=== PATIENT | male | born 1955 ===

== ENCOUNTER 2020-10-19 20:38 | Inpatient (IN) ==
[2020-10-19] MEDS ORDERED: ALBUTEROL 2.5 MG/3 ML NEB RESP TX PRN ×2 (21:25)
[2020-10-19] MEDS ORDERED: ONDANSETRON 4 MG/2 ML VIAL IV PRN (21:25)
[2020-10-19] MEDS ORDERED: ENOXAPARIN 40 MG/0.4 ML SYRINGE SUBCUT SCH (21:30)
[2020-10-19] MEDS: LACTATED RINGERS 1,000 ML IV SCH (21:50)
[2020-10-19] MEDS ORDERED: NOREPINEPHRINE 8 MG in SODIUM CHLORIDE 0.9% 242 ML IV PRN (22:51)
[2020-10-19 23:35] LABS: ABG Base Excess 0.3 MMOL/L (-2.5-2.5); ABG HCO3 24.7 MMOL/L (20-26); ABG Oxygen Saturation 98.8 % (95-100); ABG PCO2 48.8 MM HG (35-48); ABG PH 7.344 (7.35-7.45); ABG TCO2 23.9 MMOL/L (23-27)
[2020-10-19] MEDS: methylPREDNISolone SOD SUC 40 MG/1 ML VIAL IV SCH (23:45)
[2020-10-19] MEDS: FAMOTIDINE 20 MG/2 ML VIAL IV SCH (23:46)
[2020-10-20] MEDS: ENOXAPARIN 80 MG/0.8 ML SYRINGE SUBCUT SCH ×3 (00:03→22:49)
[2020-10-20] MEDS: CEFEPIME 1,000 MG in SODIUM CHLORIDE 0.9% 100 ML IV SCH ×4 (01:02→22:49)
[2020-10-20] MEDS: ALBUTEROL/IPRATROPIUM 3 ML NEB RESP TX SCH ×4 (01:12→19:07)
[2020-10-20 04:50] LABS: ABG Base Excess -3.3 MMOL/L (-2.5-2.5); ABG HCO3 21.9 MMOL/L (20-26); ABG Oxygen Saturation 98.8 % (95-100); ABG PCO2 39.7 MM HG (35-48); ABG PH 7.359 (7.35-7.45); ABG PO2 203.9 MM HG (80-95); ABG TCO2 23.1 MMOL/L (23-27)
[2020-10-20 04:54] LABS: Basophils % 0.1 % (0.0-0.8); Hematocrit 35.7 VOL% (42.0-52.0); Hemoglobin 11.3 GM/DL (14.0-18.0); Immature Granulocytes % 0.4 %; Immature Granulocytes Absolute 0.08 #; Lymphocytes # 0.3 10*3/uL (1.4-4.0); Lymphocytes % 1.8 % (21.2-54.2); Mean Corpuscular HGB Conc 31.7 GM/DL (32-36); Mean Corpuscular Volume 86.7 FL (87-102); Mean Platelet Volume 10.8 FL (9.6-12.0); Monocytes % 2.1 % (1.7-12.7); Neutrophils % 95.6 % (38.7-73.9); Platelet Count 317 T/CUMM (130-400); Red Blood Count 4.12 MC/CUMM (3.8-5.5); Red Cell Distribution Width 13.9 % (9.3-17.3)
[2020-10-20 05:16] LABS: Band Neutrophils 5 % (0-10); Hypochromasia 1+; Lymphocytes 1 % (20-55); Segmented Neutrophils 94 % (50-85); Total Cells Counted 100
[2020-10-20 05:17] LABS: Microcytosis 1+
[2020-10-20 05:19] LABS: Alanine Aminotransferase 106 U/L (16-61); Albumin 1.9 G/DL (3.4-5.0); Alkaline Phosphatase 151 U/L (45-117); Aspartate Amino Transferase 135 U/L (0-37); Bilirubin,Total < 0.39 MG/DL (0.2-1.0); Blood Urea Nitrogen 26 MG/DL (7-18); Calcium 7.5 MG/DL (8.5-10.1); Carbon Dioxide 23 MMOL/L (21-32); Estimated Glom Filtration Rate 50 ML/MIN; Glucose 427 MG/DL (74-106); Osmolality,Calculated 303.3 MOS/KG (273-304); Potassium 3.2 MMOL/L (3.5-5.1); Sodium 141 MMOL/L (136-145); Total Protein 6.3 G/DL (6.4-8.2)
[2020-10-20] MEDS ORDERED: MAGNESIUM SULF RIDER 2 GM in PREMIX 1 EACH IV PRN (05:31)
[2020-10-20] MEDS ORDERED: MAGNESIUM SULF RIDER 4 GM in PREMIX 1 EACH IV PRN (05:31)
[2020-10-20] MEDS ORDERED: INSULIN LISPRO 100 UNIT/ML SUBCUT SCH (06:00)
[2020-10-20] MEDS ORDERED: GLUCAGON 1 MG VIAL IM PRN (07:12)
[2020-10-20] MEDS ORDERED: DEXTROSE 50% 25 GM/50 ML VIAL IV PRN (07:12)
[2020-10-20] MEDS ORDERED: POTASSIUM CHLORIDE 20 MEQ/15 ML UDCUP PER TUBE PRN (07:14)
[2020-10-20] MEDS: POTASSIUM CHLORIDE RIDER 20 MEQ in PREMIX 1 EACH IV PRN ×2 (07:35→09:36)
[2020-10-20] MEDS: LACTATED RINGERS 1,000 ML IV SCH ×3 (07:42→20:49)
[2020-10-20 07:53] LABS: VLDL CHOLESTEROL 15.6 MG/DL
[2020-10-20] MEDS: ASPIRIN CHEW 81 MG TABLET PO SCH (08:14)
[2020-10-20] MEDS: INSULIN LISPRO 100 UNIT/ML SUBCUT SCH ×5 (08:15→23:57)
[2020-10-20] MEDS: FAMOTIDINE 20 MG/2 ML VIAL IV SCH ×2 (08:32→20:48)
[2020-10-20 08:37] LABS: Ferritin 223.2 ng/ml (26-388)
[2020-10-20 09:32] LABS: Troponin I 2.85 NG/ML (0.00-0.045)
[2020-10-20] MEDS: methylPREDNISolone SOD SUC 40 MG/1 ML VIAL IV SCH ×2 (10:37→22:48)
[2020-10-20 11:08] LABS: CKMB % 5.7 %; Troponin I 2.69 NG/ML (0.00-0.045)
[2020-10-20 13:29] LABS: CKMB % 4.9 %; Troponin I 2.75 NG/ML (0.00-0.045)
[2020-10-20] MEDS ORDERED: SODIUM CHLORIDE 0.9% 500 ML IV ONE (14:00)
[2020-10-20] MEDS: MORPHINE 4 MG/1 ML VIAL IV PRN ×2 (19:13→23:35)
[2020-10-20] MEDS ORDERED: INSULIN GLARGINE 100 UNIT/ML SUBCUT SCH (21:00)
[2020-10-21] MEDS: ALBUTEROL/IPRATROPIUM 3 ML NEB RESP TX SCH ×4 (01:50→17:55)
[2020-10-21 03:27] LABS: ABG Base Excess 1.1 MMOL/L (-2.5-2.5); ABG HCO3 25.4 MMOL/L (20-26); ABG Oxygen Saturation 99.3 % (95-100); ABG PH 7.415 (7.35-7.45); ABG TCO2 23.5 MMOL/L (23-27)
[2020-10-21 03:31] LABS: Basophils % 0.1 % (0.0-0.8); Eosinophils # 0.3 10*3/uL (0.0-0.87); Eosinophils % 1.3 % (0.00-10.9); Hematocrit 29.3 VOL% (42.0-52.0); Hemoglobin 9.2 GM/DL (14.0-18.0); Immature Granulocytes % 0.9 %; Lymphocytes # 0.4 10*3/uL (1.4-4.0); Mean Corpuscular HGB Conc 31.4 GM/DL (32-36); Mean Corpuscular Volume 87.2 FL (87-102); Mean Platelet Volume 10.7 FL (9.6-12.0); Monocytes % 3.3 % (1.7-12.7); Neutrophils % 92.4 % (38.7-73.9); Platelet Count 291 T/CUMM (130-400); Red Blood Count 3.36 MC/CUMM (3.8-5.5); Red Cell Distribution Width 14.2 % (9.3-17.3); White Blood Count 22.1 T/CUMM (4-12)
[2020-10-21 03:47] LABS: Calcium 7.8 MG/DL (8.5-10.1); Osmolality,Calculated 297.8 MOS/KG (273-304); Potassium 3.3 MMOL/L (3.5-5.1)
[2020-10-21] MEDS ORDERED: POTASSIUM CHLORIDE RIDER 200 ML IV ONE (03:54)
[2020-10-21] MEDS: POTASSIUM CHLORIDE RIDER 20 MEQ in PREMIX 1 EACH IV PRN ×2 (03:57→09:09)
[2020-10-21 04:02] LABS: Band Neutrophils 3 % (0-10); Eosinophils 2 % (0-10); Segmented Neutrophils 95 % (50-85); Total Cells Counted 100
[2020-10-21 04:03] LABS: Hypochromasia Slight; Platelet Estimate Normal
[2020-10-21] MEDS: INSULIN LISPRO 100 UNIT/ML SUBCUT SCH ×5 (04:26→20:36)
[2020-10-21] MEDS: MORPHINE 4 MG/1 ML VIAL IV PRN ×2 (04:26→19:33)
[2020-10-21] MEDS: CEFEPIME 1,000 MG in SODIUM CHLORIDE 0.9% 100 ML IV SCH ×2 (08:09→14:39)
[2020-10-21] MEDS: ROSUVASTATIN 10 MG TABLET PO SCH (08:09)
[2020-10-21] MEDS: ASPIRIN CHEW 81 MG TABLET PO SCH (08:09)
[2020-10-21] MEDS: FAMOTIDINE 20 MG/2 ML VIAL IV SCH ×2 (08:30→20:37)
[2020-10-21] MEDS ORDERED: SKIN HEALING OINT (AQUAPHOR) 50 GM TUBE TOP PRN (09:00)
[2020-10-21] MEDS: LACTATED RINGERS 1,000 ML IV SCH (10:03)
[2020-10-21] MEDS: amLODIPine 10 MG TABLET PO SCH (10:31)
[2020-10-21] MEDS: methylPREDNISolone SOD SUC 40 MG/1 ML VIAL IV SCH ×2 (10:32→23:02)
[2020-10-21] MEDS: DEXTROSE 5% NACL 0.45% 1,000 ML IV SCH (12:00)
[2020-10-21] MEDS: ENOXAPARIN 80 MG/0.8 ML SYRINGE SUBCUT SCH ×2 (12:05→23:58)
[2020-10-21] MEDS: METOPROLOL TARTRATE 50 MG TABLET PO SCH (20:31)
[2020-10-21] MEDS ORDERED: INSULIN GLARGINE 100 UNIT/ML SUBCUT SCH (21:00)
[2020-10-22] MEDS: MORPHINE 4 MG/1 ML VIAL IV PRN ×2 (00:18→06:29)
[2020-10-22] MEDS: CEFEPIME 1,000 MG in SODIUM CHLORIDE 0.9% 100 ML IV SCH ×4 (00:36→23:59)
[2020-10-22] MEDS: ALBUTEROL/IPRATROPIUM 3 ML NEB RESP TX SCH ×4 (01:11→19:41)
[2020-10-22] MEDS: INSULIN LISPRO 100 UNIT/ML SUBCUT SCH ×8 (01:25→23:59)
[2020-10-22] MEDS: DEXTROSE 5% NACL 0.45% 1,000 ML IV SCH (02:25)
[2020-10-22 03:47] LABS: ABG Base Excess -0.3 MMOL/L (-2.5-2.5); ABG HCO3 24.2 MMOL/L (20-26); ABG Oxygen Saturation 96.4 % (95-100); ABG PCO2 38.9 MM HG (35-48); ABG PH 7.403 (7.35-7.45); ABG PO2 84.6 MM HG (80-95); ABG TCO2 22.2 MMOL/L (23-27)
[2020-10-22 03:56] LABS: Basophils % 0.1 % (0.0-0.8); Eosinophils # 0.3 10*3/uL (0.0-0.87); Eosinophils % 1.4 % (0.00-10.9); Hematocrit 29.7 VOL% (42.0-52.0); Hemoglobin 9.1 GM/DL (14.0-18.0); Immature Granulocytes % 2.2 %; Immature Granulocytes Absolute 0.42 #; Lymphocytes # 0.3 10*3/uL (1.4-4.0); Lymphocytes % 1.7 % (21.2-54.2); Mean Corpuscular HGB Conc 30.6 GM/DL (32-36); Mean Corpuscular Volume 88.7 FL (87-102); Mean Platelet Volume 10.9 FL (9.6-12.0); Monocytes % 3.4 % (1.7-12.7); Neutrophils % 91.2 % (38.7-73.9); Platelet Count 299 T/CUMM (130-400); Red Blood Count 3.35 MC/CUMM (3.8-5.5); Red Cell Distribution Width 14.5 % (9.3-17.3); White Blood Count 19.5 T/CUMM (4-12)
[2020-10-22 04:08] LABS: Calcium 7.7 MG/DL (8.5-10.1); Osmolality,Calculated 296.1 MOS/KG (273-304); Potassium 3.9 MMOL/L (3.5-5.1)
[2020-10-22 04:41] LABS: Band Neutrophils 5 % (0-10); Hypochromasia 1+; Lymphocytes 5 % (20-55); Microcytosis Slight; Segmented Neutrophils 86 % (50-85); Total Cells Counted 100
[2020-10-22] MEDS: ASPIRIN CHEW 81 MG TABLET PO SCH (08:47)
[2020-10-22] MEDS: FAMOTIDINE 20 MG/2 ML VIAL IV SCH ×2 (08:47→20:33)
[2020-10-22] MEDS: amLODIPine 10 MG TABLET PO SCH (08:48)
[2020-10-22] MEDS: METOPROLOL TARTRATE 50 MG TABLET PO SCH ×2 (08:48→20:33)
[2020-10-22] MEDS: ROSUVASTATIN 10 MG TABLET PO SCH (08:48)
[2020-10-22] MEDS: methylPREDNISolone SOD SUC 40 MG/1 ML VIAL IV SCH ×2 (09:10→23:59)
[2020-10-22] MEDS: hydrALAZINE 20 MG/1 ML VIAL IV PRN ×2 (09:15→17:00)
[2020-10-22] MEDS ORDERED: ONDANSETRON 4 MG/2 ML VIAL IV ONE (10:29)
[2020-10-22 11:00] LABS: ABG Base Excess -2.6 MMOL/L (-2.5-2.5); ABG HCO3 21.4 MMOL/L (20-26); ABG Oxygen Saturation 94.8 % (95-100); ABG PCO2 34.4 MM HG (35-48); ABG PH 7.411 (7.35-7.45); ABG PO2 79.5 MM HG (80-95); ABG TCO2 22.4 MMOL/L (23-27)
[2020-10-22] MEDS: ENOXAPARIN 80 MG/0.8 ML SYRINGE SUBCUT SCH ×2 (11:15→23:59)
[2020-10-22] MEDS: hydrALAZINE 25 MG TABLET PO SCH ×2 (14:00→20:33)
[2020-10-22] MEDS ORDERED: METOPROLOL TARTRATE 5 MG/5 ML VIAL IV ONE (15:38)
[2020-10-22] MEDS ORDERED: INSULIN GLARGINE 100 UNIT/ML SUBCUT SCH (21:00)
[2020-10-23] MEDS: ALBUTEROL/IPRATROPIUM 3 ML NEB RESP TX SCH ×4 (00:50→19:17)
[2020-10-23] MEDS: INSULIN LISPRO 100 UNIT/ML SUBCUT SCH ×5 (04:24→20:22)
[2020-10-23 04:44] LABS: Basophils % 0.2 % (0.0-0.8); Eosinophils # 0.4 10*3/uL (0.0-0.87); Eosinophils % 1.8 % (0.00-10.9); Hematocrit 32.6 VOL% (42.0-52.0); Hemoglobin 10.5 GM/DL (14.0-18.0); Immature Granulocytes % 1.1 %; Immature Granulocytes Absolute 0.22 #; Lymphocytes # 0.4 10*3/uL (1.4-4.0); Mean Corpuscular HGB Conc 32.2 GM/DL (32-36); Mean Corpuscular Volume 86.9 FL (87-102); Mean Platelet Volume 10.7 FL (9.6-12.0); Monocytes % 2.5 % (1.7-12.7); Neutrophils % 92.4 % (38.7-73.9); Platelet Count 316 T/CUMM (130-400); Red Blood Count 3.75 MC/CUMM (3.8-5.5); Red Cell Distribution Width 14.4 % (9.3-17.3); White Blood Count 20.1 T/CUMM (4-12)
[2020-10-23 05:05] LABS: Osmolality,Calculated 289.8 MOS/KG (273-304); Potassium 3.8 MMOL/L (3.5-5.1)
[2020-10-23 06:03] LABS: ABG Base Excess 2.5 MMOL/L (-2.5-2.5); ABG HCO3 26.4 MMOL/L (20-26); ABG Oxygen Saturation 85.4 % (95-100); ABG PCO2 41.8 MM HG (35-48); ABG PH 7.421 (7.35-7.45); ABG TCO2 24.6 MMOL/L (23-27)
[2020-10-23 06:04] LABS: Allen Test Positive
[2020-10-23 07:00] LABS: Lymphocytes 5 % (20-55); Platelet Estimate Increased; Polychromasia Slight; Segmented Neutrophils 92 % (50-85); Total Cells Counted 100
[2020-10-23 07:01] LABS: Stomatocytes Few
[2020-10-23 07:02] LABS: Hypochromasia Slight; Microcytosis 1+
[2020-10-23] MEDS: amLODIPine 10 MG TABLET PO SCH (08:25)
[2020-10-23] MEDS: ROSUVASTATIN 10 MG TABLET PO SCH (08:25)
[2020-10-23] MEDS: ASPIRIN CHEW 81 MG TABLET PO SCH (08:25)
[2020-10-23] MEDS: METOPROLOL TARTRATE 50 MG TABLET PO SCH ×2 (08:25→20:14)
[2020-10-23] MEDS: CEFEPIME 1,000 MG in SODIUM CHLORIDE 0.9% 100 ML IV SCH ×3 (08:26→23:51)
[2020-10-23] MEDS: DEXTROSE 5% NACL 0.45% 1,000 ML IV SCH ×2 (08:27→22:26)
[2020-10-23] MEDS: hydrALAZINE 25 MG TABLET PO SCH ×3 (09:15→20:14)
[2020-10-23] MEDS: FAMOTIDINE 20 MG/2 ML VIAL IV SCH (09:15)
[2020-10-23] MEDS ORDERED: ERGOCALCIFEROL 50,000 UNIT CAPSULE PO SCH (10:00)
[2020-10-23] MEDS: methylPREDNISolone SOD SUC 40 MG/1 ML VIAL IV SCH ×2 (11:09→23:51)
[2020-10-23] MEDS: ENOXAPARIN 40 MG/0.4 ML SYRINGE SUBCUT SCH (11:10)
[2020-10-23] MEDS ORDERED: INSULIN GLARGINE 100 UNIT/ML SUBCUT SCH (21:00)
[2020-10-24] MEDS: ALBUTEROL/IPRATROPIUM 3 ML NEB RESP TX SCH ×4 (00:21→19:23)
[2020-10-24 05:50] LABS: Basophils # 0.1 10*3/uL (0.0-0.2); Basophils % 0.3 % (0.0-0.8); Eosinophils # 0.7 10*3/uL (0.0-0.87); Eosinophils % 4.5 % (0.00-10.9); Hematocrit 31.2 VOL% (42.0-52.0); Hemoglobin 9.6 GM/DL (14.0-18.0); Immature Granulocytes % 1.4 %; Immature Granulocytes Absolute 0.24 #; Lymphocytes # 0.6 10*3/uL (1.4-4.0); Lymphocytes % 3.9 % (21.2-54.2); Mean Corpuscular HGB Conc 30.8 GM/DL (32-36); Mean Corpuscular Volume 88.4 FL (87-102); Monocytes % 2.5 % (1.7-12.7); Neutrophils % 87.4 % (38.7-73.9); Platelet Count 310 T/CUMM (130-400); Red Blood Count 3.53 MC/CUMM (3.8-5.5); Red Cell Distribution Width 14.4 % (9.3-17.3); White Blood Count 16.6 T/CUMM (4-12)
[2020-10-24 06:10] LABS: Albumin 1.8 G/DL (3.4-5.0); Calcium 7.8 MG/DL (8.5-10.1); Osmolality,Calculated 284.1 MOS/KG (273-304); Potassium 3.5 MMOL/L (3.5-5.1); Total Protein 6.1 G/DL (6.4-8.2)
[2020-10-24 06:31] LABS: Anisocytosis 1+; Band Neutrophils 5 % (0-10); Eosinophils 6 % (0-10); Platelet Estimate Normal; Segmented Neutrophils 85 % (50-85); Total Cells Counted 100
[2020-10-24] MEDS: amLODIPine 10 MG TABLET PO SCH (09:08)
[2020-10-24] MEDS: CEFEPIME 1,000 MG in SODIUM CHLORIDE 0.9% 100 ML IV SCH ×3 (09:08→22:33)
[2020-10-24] MEDS: METOPROLOL TARTRATE 50 MG TABLET PO SCH ×2 (09:09→21:06)
[2020-10-24] MEDS: ASPIRIN CHEW 81 MG TABLET PO SCH (09:09)
[2020-10-24] MEDS: hydrALAZINE 25 MG TABLET PO SCH (09:09)
[2020-10-24] MEDS: ROSUVASTATIN 10 MG TABLET PO SCH (09:09)
[2020-10-24] MEDS: INSULIN LISPRO 100 UNIT/ML SUBCUT SCH ×4 (09:48→20:15)
[2020-10-24] MEDS: DEXTROSE 5% NACL 0.45% 1,000 ML IV SCH (10:34)
[2020-10-24] MEDS: ENOXAPARIN 40 MG/0.4 ML SYRINGE SUBCUT SCH (10:38)
[2020-10-24] MEDS: buPROPion SR 100 MG TABLET PO SCH (12:08)
[2020-10-24] MEDS ORDERED: ACETAMINOPHEN 325 MG TABLET PO PRN (20:47)
[2020-10-25] MEDS: DEXTROSE 5% NACL 0.45% 1,000 ML IV SCH (00:05)
[2020-10-25] MEDS: ALBUTEROL/IPRATROPIUM 3 ML NEB RESP TX SCH ×3 (00:17→13:24)
[2020-10-25 04:40] LABS: Basophils # 0.1 10*3/uL (0.0-0.2); Basophils % 0.4 % (0.0-0.8); Eosinophils # 1.2 10*3/uL (0.0-0.87); Eosinophils % 8.2 % (0.00-10.9); Hematocrit 29.8 VOL% (42.0-52.0); Hemoglobin 9.3 GM/DL (14.0-18.0); Immature Granulocytes % 2.5 %; Immature Granulocytes Absolute 0.35 #; Lymphocytes # 1.7 10*3/uL (1.4-4.0); Lymphocytes % 11.7 % (21.2-54.2); Mean Corpuscular HGB Conc 31.2 GM/DL (32-36); Mean Corpuscular Volume 88.2 FL (87-102); Mean Platelet Volume 10.7 FL (9.6-12.0); Monocytes % 5.6 % (1.7-12.7); Neutrophils % 71.6 % (38.7-73.9); Platelet Count 286 T/CUMM (130-400); Red Blood Count 3.38 MC/CUMM (3.8-5.5); Red Cell Distribution Width 14.4 % (9.3-17.3); White Blood Count 14.1 T/CUMM (4-12)
[2020-10-25 05:00] LABS: Calcium 7.5 MG/DL (8.5-10.1); Osmolality,Calculated 284.5 MOS/KG (273-304); Potassium 3.4 MMOL/L (3.5-5.1)
[2020-10-25 05:01] LABS: Hypochromasia 1+; Microcytosis 1+
[2020-10-25 05:02] LABS: Platelet Estimate Normal; Polychromasia Slight
[2020-10-25] MEDS: amLODIPine 10 MG TABLET PO SCH (08:36)
[2020-10-25] MEDS: METOPROLOL TARTRATE 50 MG TABLET PO SCH (08:36)
[2020-10-25] MEDS: ROSUVASTATIN 10 MG TABLET PO SCH (08:36)
[2020-10-25] MEDS: buPROPion SR 100 MG TABLET PO SCH (08:36)
[2020-10-25] MEDS: ASPIRIN CHEW 81 MG TABLET PO SCH (08:36)
[2020-10-25] MEDS: CEFEPIME 1,000 MG in SODIUM CHLORIDE 0.9% 100 ML IV SCH (08:36)
[2020-10-25] MEDS: INSULIN LISPRO 100 UNIT/ML SUBCUT SCH ×2 (08:37→12:53)
[2020-10-25] MEDS ORDERED: predniSONE 20 MG TABLET PO SCH (09:00)
[2020-10-25] MEDS ORDERED: FUROSEMIDE 40 MG/4 ML VIAL IV ONE (09:00)
[2020-10-25] MEDS: ENOXAPARIN 40 MG/0.4 ML SYRINGE SUBCUT SCH (10:58)
[2020-10-25] MEDS ORDERED: SPIRONOLACTONE 25 MG TABLET PO SCH (11:00)
[2020-10-25] MEDS ORDERED: lisinopriL 20 MG TABLET PO SCH (11:00)
[2020-10-25 11:48] VITALS: BP 125/64
[2020-10-25] MEDS ORDERED: DOXYCYCLINE HYCLATE 100 MG CAPSULE PO SCH (21:00)
[2020-10-25] MEDS ORDERED: buPROPion SR 100 MG TABLET PO SCH (21:00)
[2020-10-26] MEDS ORDERED: LEVOFLOXACIN 500 MG TABLET PO SCH (09:00)
[2020-10-26] MEDS ORDERED: FUROSEMIDE 40 MG TABLET PO SCH (09:00)
== END 2020-10-25 13:57 | disposition home or self-care (01) | DRG 208 ==
LOC: N.CC 21:48 → SUATTDRO 21:48 → N.5E 10-23 13:55
PROVIDERS: ADMIT Internal Medicine; ATTEND Hospitalist